=== PATIENT | female | born 1955 | race Caucasian/White ===

== ENCOUNTER 2019-11-09 20:31 | Observation (INO) | payer BC, OTHER ==
[2019-11-09 21:50] LABS: Absolute Lymphocytes (CBC) 3.7 K/uL (0.7-4.9); Basophils % 0.5 % (0-1.3); Hematocrit 40.8 % (36.0-45.0); Lymphocytes % 41.3 % (15.3-44.8); MPV 8.1 fL (7.6-11.3); RBC Red Blood Cell Count 4.79 M/uL (3.86-4.86)
[2019-11-09 22:09] LABS: Urine Blood 1+ (NEG); Urine Glucose NEGATIVE (NEG); Urine Protein NEGATIVE (NEG); Urine pH 5.5 (5.0-7.0)
[2019-11-09 22:09] LABS: ALT/SGPT 23 U/L (12-78); AST/SGOT 17 U/L (15-37); Albumin 3.7 g/dL (3.4-5.0); Alkaline Phosphatase 111 U/L (45-117); BUN Blood Urea Nitrogen 11 mg/dL (7-18); Bicarbonate 24 mmol/L (21-32); Bilirubin Direct < 0.1 mg/dL (0-0.2); Bilirubin Total 0.3 mg/dL (0.2-1.0); Glucose Level 115 mg/dL (74-106); Potassium 3.4 mmol/L (3.5-5.1); Protein, Total 6.8 g/dL (6.4-8.2); Sodium Level 139 mmol/L (136-145)
[2019-11-09 22:12] LABS: Barbiturates NEGATIVE (NEGATIVE); Benzodiazepines NEGATIVE (NEGATIVE); Cocaine NEGATIVE (NEGATIVE); METHAMPHETAM NEGATIVE (NEGATIVE); Methadone NEGATIVE (NEGATIVE); Opiates NEGATIVE (NEGATIVE); Phencyclidine NEGATIVE (NEGATIVE); THC Cannibis NEGATIVE (NEGATIVE)
[2019-11-09 22:24] LABS: Urine Bacteria NONE SEEN /HPF (<20); Urine Culture Reflex Order NOT NEEDED; Urine RBC <5 /HPF (NONE SEEN)
[2019-11-10] MEDS ORDERED: DIAZEPAM 2 MG TABLET ONE (02:02)
--- NOTE | 2019-11-10 02:06 | EDPHYS ---
Physician Documentation [facility] Name: Jazmín Isabel Age: 64 yrs Sex: Female : 1955 Arrival Date: 11/09/2019 Time: 20:35 Bed 6 Private MD: Tomy Zavala C ED Physician Martinez Varma HPI: 11/09 21:25 This 64 yrs old Female presents to ER via Ambulatory with complaints of rn Hallucinations. 21:25 The patient presents with hallucinations. Onset: The symptoms/episode began/occurred 2 rn month(s) ago. Possible causes: unknown. Current symptoms: In the emergency department the patient's symptoms are unchanged from the initial presentation. The patient has not experienced similar symptoms in the past. Reports for 2 months has been having hallucinations, no head injury/medication change/drug use. Reports seeing snakes, now seeing faces and arrows and objects in [place]. No previous psychiatric hx in patient or family. Eating well. . Historical: - Allergies: 21:02 welbutrin; fc - Home Meds: 21:03 methimazole 10 mg Oral tab 1 tab once daily [Active]; metoprolol tartrate 50 mg Oral fc tab 1 tab 2 times per day [Active]; - PMHx: 21:02 Arthritis; grave's disease; Hypertension; left ventricular enlargement; colon cancer; fc - PSHx: 21:02 Appendectomy; Hysterectomy; fc - Immunization history:: Adult Immunizations up to date. - Coronavirus screen:: The patient has NOT traveled to [place], [place], or [place] in the past 14 days. Proceed with normal triage process as indicated. The patient has NOT had contact with known/suspected case of Coronavirus? Proceed with normal triage procedures. - Social history:: Smoking status: Patient reports the use of cigarette tobacco products, smokes one pack cigarettes per day. - Family history:: not pertinent. - Ebola Screening: : No symptoms or risks identified at this time. - Hospitalizations: : No recent hospitalization is reported. ROS: 21:25 Constitutional: Negative for fever, chills, and weight loss, Eyes: Negative for injury, rn pain, redness, and discharge, Neck: Negative for injury, pain, and swelling, Cardiovascular: Negative for chest pain, palpitations, and edema, Respiratory: Negative for shortness of breath, cough, wheezing, and pleuritic chest pain, Abdomen/GI: Negative for abdominal pain, nausea, vomiting, diarrhea, and constipation, MS/Extremity: Negative for injury and deformity, Skin: Negative for injury, rash, and discoloration, Neuro: Negative for headache, weakness, numbness, tingling, and seizure. Exam: 21:25 Constitutional: This is a well developed, well nourished patient who is awake, alert, rn and in no acute distress. Tearful Head/Face: Normocephalic, atraumatic. Eyes: Pupils equal round and reactive to light, extra-ocular motions intact. Lids and lashes normal. Conjunctiva and sclera are non-icteric and not injected. Cornea within normal limits. Periorbital areas with no swelling, redness, or edema. Neck: Trachea midline, Supple, full range of motion without nuchal rigidity, or vertebral point tenderness. No Meningismus. + left supraclavicular soft mobile mass that is non-tender Cardiovascular: Regular rate and rhythm. No pulse deficits. Respiratory: No increased work of breathing, no retractions or nasal flaring. Abdomen/GI: soft, non-tender MS/ Extremity: Pulses equal, no cyanosis. Neurovascular intact. Full, normal range of motion. Equal circumference. Neuro: Awake and alert, GCS 15, oriented to person, place, time, and situation. Cranial nerves II-XII grossly intact. Motor strength 5/5 in all extremities. Sensory grossly intact. Cerebellar exam normal. Vital Signs: 21:04 BP 158 / 95; Pulse 90; Resp 19; Temp 97.8; Pulse Ox 99% ; Weight 88.45 kg; Height 5 ft. fc 5 in. (165.10 cm); Pain 0/10; 22:43 BP 115 / 47; Pulse 67; Resp 18; Pulse Ox 97% on R/A; ea 23:03 BP 129 / 65; Pulse 78; Resp 18; Pulse Ox 100% on R/A; ea 11/10 00:08 BP 129 / 71; Pulse 68; Resp 18; Temp 98; Pulse Ox 99% on R/A; ea 03:14 BP 129 / 62; Pulse 70; Resp 18; Pulse Ox 96% on R/A; ea 11/09 21:04 Body Mass Index 32.45 (88.45 kg, 165.10 cm) fc MDM: 11/09 21:00 Patient medically screened. rn 11/10 02:04 Differential Diagnosis: CVA, electrolyte abnormality, TIA, UTI, volume depletion. Data rn reviewed: vital signs, nurses notes, lab test result(s), radiologic studies, and as a result, I will admit patient. Counseling: I had a detailed discussion with the patient and/or guardian regarding: the historical points, exam findings, and any diagnostic results supporting the discharge/admit diagnosis, lab results, radiology results, the need for further work-up and treatment in the hospital. Response to treatment: There is no appreciated change of the patient's symptoms at this time, and as a result, I will admit patient. Admission orders: after a detailed discussion of the patient's condition and case, the admit orders are written by me. ED course: Neg w/u in ER, will admit for MRI and neuro consult to rule out medical cause of hallucinations.. 11/09 21:23 Order name: CBC with Diff; Complete Time: 00:42 rn 11/09 21:23 Order name: Basic Metabolic Panel; Complete Time: 00:42 rn 11/09 21:23 Order name: Urine Drug Screen; Complete Time: 00:42 rn 11/09 21:23 Order name: Urine Microscopic Only; Complete Time: 00:42 rn 11/09 21:23 Order name: TSH; Complete Time: 00:42 rn 11/09 21:23 Order name: T4 Free; Complete Time: 00:42 rn 11/09 21:23 Order name: IV Start; Complete Time: 21:36 rn 11/09 21:23 Order name: Urine Dipstick-Ancillary (obtain specimen); Complete Time: 22:00 rn 11/09 21:23 Order name: EKG; Complete Time: 21:24 rn 11/09 21:23 Order name: CT Head Brain wo Cont rn 11/09 21:23 Order name: LFT's; Complete Time: 00:42 rn 11/09 21:23 Order name: AMMONIA rn 11/09 22:01 Order name: Urine Dipstick--Ancillary (enter results); Complete Time: 00:42 em1 11/09 21:23 Order name: EKG - Nurse/Tech; Complete Time: 21:36 rn 11/09 21:52 Order name: Labs - recollect needed: recollect ammonia please use dark green tube; em1 Complete Time: 22:04 Administered Medications: 02:00 Drug: Valium 2 mg Route: PO; ea 03:06 Follow up: Response: No adverse reaction ea Disposition: 11/10/19 02:05 Hospitalization ordered by Tomy Zavala for Observation. Preliminary diagnosis is Hallucinations, unspecified. - Bed requested for Telemetry/MedSurg (observation). - Status is Observation. rv - Condition is Stable. - Problem is an ongoing problem. - Symptoms are unchanged. UTI on Admission? No Signatures: Dispatcher [employer] EDMS Rolanda Espinoza, RN RN fc Martinez Varma MD MD rn Martinez, Eric em1 Maile Flowers RN RN cg Elenita Leos RN Rajesh Ovalle ea, RN RN rv Corrections: (The following items were deleted from the chart) 02:56 02:05 Hospitalization Ordered by A Sally CRUZ for Observation. Preliminary diagnosis is cg Hallucinations, unspecified. Bed requested for Telemetry/MedSurg (observation). Status is Observation. Condition is Stable. Problem is an ongoing problem. Symptoms are unchanged. UTI on Admission? No. rn 03:40 02:56 11/10/2019 02:05 Hospitalization Ordered by A Sally CRUZ for Observation. rv Preliminary diagnosis is Hallucinations, unspecified. Bed requested for Telemetry/MedSurg (observation). Status is Observation. Condition is Stable. Problem is an ongoing problem. Symptoms are unchanged. UTI on Admission? No. cg
--- NOTE | 2019-11-10 02:06 | ER ---
Nurse's Notes [facility] Name: Jazmín Isabel Age: 64 yrs Sex: Female : 1955 Arrival Date: 11/09/2019 Time: 20:35 Bed 6 Private MD: Tomy Zavala C Diagnosis: Hallucinations, unspecified Presentation: 11/09 20:58 Presenting complaint: Patient states: started having hallucinations couple of months fc ago. Last September, she called her saying she is seeing people at the backyard. She has been seeing snakes, fog, etc. denies hurting herself or the others. she talks about taking her computer to the [employer]. Transition of care: patient was not received from another setting of care. Onset of symptoms was November 09, 2019 at 08:00. Risk Assessment: Do you want to hurt yourself or someone else? Patient reports no desire to harm self or others. Initial Sepsis Screen: Does the patient meet any 2 criteria? No. Patient's initial sepsis screen is negative. Does the patient have a suspected source of infection? No. Patient's initial sepsis screen is negative. Care prior to arrival: None. 20:58 Method Of Arrival: Ambulatory 20:58 Acuity: ALEX 3 fc Historical: - Allergies: 21:02 welbutrin; fc - Home Meds: 21:03 methimazole 10 mg Oral tab 1 tab once daily [Active]; metoprolol tartrate 50 mg Oral fc tab 1 tab 2 times per day [Active]; - PMHx: 21:02 Arthritis; grave's disease; Hypertension; left ventricular enlargement; colon cancer; fc - PSHx: 21:02 Appendectomy; Hysterectomy; fc - Immunization history:: Adult Immunizations up to date. - Coronavirus screen:: The patient has NOT traveled to [place], [place], or [place] in the past 14 days. Proceed with normal triage process as indicated. The patient has NOT had contact with known/suspected case of Coronavirus? Proceed with normal triage procedures. - Social history:: Smoking status: Patient reports the use of cigarette tobacco products, smokes one pack cigarettes per day. - Family history:: not pertinent. - Ebola Screening: : No symptoms or risks identified at this time. - Hospitalizations: : No recent hospitalization is reported. Screenin:00 Fall Risk IV access (20 points). ea 21:21 Abuse screen: Denies threats or abuse. Nutritional screening: No deficits noted. ea Tuberculosis screening: No symptoms or risk factors identified. Assessment: 21:34 General: Appears in no apparent distress. Behavior is cooperative. Pain: Denies pain. ea Neuro: Level of Consciousness is awake, alert, obeys commands, Oriented to person, place, time, Speech is normal. Cardiovascular: Patient's skin is warm and dry. Respiratory: Airway is patent Respiratory effort is even, unlabored, Respiratory pattern is regular, symmetrical. Derm: Skin is pink, warm \T\ dry. Musculoskeletal: Circulation, motion, and sensation intact. 22:03 Reassessment: Patient and/or family updated on plan of care and expected duration. Pain ea level reassessed. Patient is alert, oriented x 3, equal unlabored respirations, skin warm/dry/pink. Pt taken to CT. 22:16 Reassessment: Patient and/or family updated on plan of care and expected duration. Pain ea level reassessed. Patient is alert, oriented x 3, equal unlabored respirations, skin warm/dry/pink. Returned form CT. 23:02 Reassessment: Patient and/or family updated on plan of care and expected duration. Pain ea level reassessed. Patient is alert, oriented x 3, equal unlabored respirations, skin warm/dry/pink. Awaiting on CT results, family remains at bedside Patient denies pain at this time. 11/10 00:09 Reassessment: Patient and/or family updated on plan of care and expected duration. Pain ea level reassessed. Patient is alert, oriented x 3, equal unlabored respirations, skin warm/dry/pink. 01:52 Reassessment: Patient and/or family updated on plan of care and expected duration. Pain ea level reassessed. Patient is alert, oriented x 3, equal unlabored respirations, skin warm/dry/pink. Provider at bedside updating pt on plan of care. 02:11 Reassessment: Patient and/or family updated on plan of care and expected duration. Pain ea level reassessed. Patient is alert, oriented x 3, equal unlabored respirations, skin warm/dry/pink. Irene pt's daughter reported she is going to leave to take a nap and return at 7 AM, call [phone] if anything changes. 03:13 Reassessment: Patient and/or family updated on plan of care and expected duration. Pain ea level reassessed. Pt resting with eyes closed, respirations even and unlabored, chest expansions even and symmetrical. 03:34 Reassessment: Report called to Anyi MEZA. ea Vital Signs: 11/09 21:04 BP 158 / 95; Pulse 90; Resp 19; Temp 97.8; Pulse Ox 99% ; Weight 88.45 kg; Height 5 ft. 5 in. (165.10 cm); Pain 0/10; 22:43 BP 115 / 47; Pulse 67; Resp 18; Pulse Ox 97% on R/A; ea 23:03 BP 129 / 65; Pulse 78; Resp 18; Pulse Ox 100% on R/A; ea 11/10 00:08 BP 129 / 71; Pulse 68; Resp 18; Temp 98; Pulse Ox 99% on R/A; ea 03:14 BP 129 / 62; Pulse 70; Resp 18; Pulse Ox 96% on R/A; ea 11/09 21:04 Body Mass Index 32.45 (88.45 kg, 165.10 cm) ED Course: 11/09 20:35 Patient arrived in ED. ag5 20:36 Tomy Zavala MD is Private Physician. ag5 20:36 Raudel Zavala MD is Private Physician. ag5 20:36 Raudel Zavala MD is Private Physician. ag5 21:00 Martinez Varma MD is Attending Physician. rn 21:01 Triage completed. 21:20 Elenita Leos RN is Primary Nurse. ea 21:21 Arm band placed on right wrist. Patient placed in an exam room, on a stretcher, on ea pulse oximetry. 21:21 Patient has correct armband on for positive identification. Bed in low position. Call ea light in reach. Side rails up X2. Adult w/ patient. 21:35 Inserted saline lock: 20 gauge in right antecubital area, using aseptic technique. ea Blood collected. Per Aisha laboratory mechanical technician. 22:14 CT Head Brain wo Cont In Process Unspecified. EDMI 11/10 02:05 Tomy Zavala MD is Hospitalizing Provider. rn 02:06 No provider procedures requiring assistance completed. Patient admitted, IV remains in ea place. Administered Medications: 02:00 Drug: Valium 2 mg Route: PO; ea 03:06 Follow up: Response: No adverse reaction corry Outcome: 02:05 Decision to Hospitalize by Provider. rn 02:06 Instructed on the need for admit. corry 03:34 Admitted to Med/surg accompanied by tech, room 210, with chart, Report called to corry De Santiago RN 03:34 Condition: stable 03:40 Patient left the ED. rv Signatures: Dispatcher [employer] EDMS Rolanda Espinoza RN Martinez Sloan MD MD rn Antunez, Elena, RN RN ea Vicente, Ronaldo RN RN Gamaliel Branham ag5
[2019-11-10] MEDS ORDERED: ONDANSETRON 4 MG/2 ML VIAL IV PRN (04:06)
[2019-11-10 04:13] VITALS: BMI 32.0
[2019-11-10 06:31] VITALS: O2SAT 98
--- NOTE | 2019-11-10 06:56 | EKG ---
Test Date: 2019-11-09 Test Time: 21:34:34 Vice President Research: GERTRUDIS MEASUREMENT RESULTS: Intervals: Rate: 78 WA: 154 QRSD: 72 QT: 404 QTc: 460 [place]: P: 52 WA: 154 QRS: 19 T: 51 INTERPRETIVE STATEMENTS: Normal sinus rhythm T wave abnormality, consider anterior ischemia Abnormal ECG Compared to ECG 12/25/2016 11:35:44 T-wave abnormality now present Possible ischemia now present Left ventricular hypertrophy no longer present ST (T wave) deviation no longer present Electronically Signed On 11-10-19 06:55:30 PASSENGER VESSEL CHEF by Malik Russell
[2019-11-10] MEDS ORDERED: PNEUMOCOCCAL VACCINE 0.5 ML IMVAC ONE (08:00)
[2019-11-10] MEDS ORDERED: INFLUENZA VACCINE (for 3y+) 0.5 ML DOSE IMVAC ONE (08:00)
--- NOTE | 2019-11-10 11:52 | RAD REPORT ---
EXAM DESCRIPTION: MRI - Brain W/Wo Cont - 11/10/2019 9:45 am CLINICAL HISTORY: Visual hallucinations COMPARISON: November 10, [address] TECHNIQUE: Axial, sagittal, and coronal magnetic images of the brain were obtained. 20 cc MultiHance administered intravenously FINDINGS: Mild signal within periventricular, deep and subcortical white matter probably ischemic ch anges secondary to small vessel disease The ventricles are normal in caliber. Diffusion-weighted/ ADC mapping sequences do not demonstrate evidence of an acute infarction. No abnormal enhancement within the brain is seen. An extra-axial fluid collection is not noted. Fluid within the sinuses/mastoids is not seen IMPRESSION: No acute abnormality displayed
--- NOTE | 2019-11-10 11:53 | RAD REPORT ---
EXAM DESCRIPTION: MRI - MRA Neck W/Wo Cont - 11/10/2019 9:45 am CLINICAL HISTORY: Visual hallucinations COMPARISON: None. TECHNIQUE: Magnetic resonance angiogram of the neck was performed. 19 cc MultiHance was administered intravenously. 3D MIPS reconstruction performed FINDINGS: Mild plaque is present within common carotid, internal carotid and external carotid arteri es. An aneurysm is not seen. The vertebral arteries are codominant without visualization of an abnormality. IMPRESSION: Mild plaque within the carotid arteries. A significant abnormality is not displayed. NASCET criteria used. Mild 0-49% stenosis Moderate 50-69% stenosis Severe 70-99% stenosis
--- NOTE | 2019-11-10 11:56 | RAD REPORT ---
EXAM DESCRIPTION: MRI - MRA Head Wo Cont - 11/10/2019 9:44 am CLINICAL HISTORY: Visual disturbance COMPARISON: None. TECHNIQUE: Magnetic resonance angiogram was performed. 3D MIPS reconstruction performed FINDINGS: The anterior cerebral, middle cerebral, posterior cerebral, distal internal carotid and ba silar arteries do not demonstrate a significant stenosis. Dolichoectasia of the vertebrobasilar artery is present An aneurysm is not displayed. IMPRESSION: Unremarkable MRA brain.
[2019-11-10 12:13] VITALS: BP 126/55; TEMP 97.4
--- NOTE | 2019-11-10 12:27 | RAD REPORT ---
EXAM DESCRIPTION: CT - Head Brain Wo Cont - 11/10/2019 9:52 am CLINICAL HISTORY: Hallucinations COMPARISON: None available TECHNIQUE: Axial CT of the head obtained from the skull apex to the skull base without contrast. FINDINGS: No acute intracranial hemorrhage identified. No mass, mass effect, shift of the midline, a bnormal extra-axial fluid collection or CT evidence of acute ischemic change identified. The ventricu lar system and sulcal spaces are not enlarged. Scattered areas of hypodensity throughout the suprat entorial white matter are nonspecific and may be related to chronic small vessel ischemic change. The visualized paranasal sinuses and the mastoids are clear. No skull fracture identified. Visualized orbits and globes are unremarkable. Atherosclerotic nessa cification of the intracranial internal carotid arteries. DLP: mGy-cm IMPRESSION: 1. No acute intracranial abnormality by CT criteria. This exam was performed according to our departmental dose-optimization program, which includes autom ated exposure control, adjustment of the mA and/or kV according to patient size and/or use of iterati ve reconstruction technique. Electronically signed by: Campbell Ragland 11/09/2019 10:32 PM NURSE RESEARCH Due to temporary technical issues with the PACS/Fluency reporting system, reports are being signed by the in house radiologist as a courtesy to ensure prompt reporting. The interpreting radiologist is f ully responsible for the content of the report.
--- NOTE | 2019-11-10 21:50 | CON ---
Reason For Consultation: Consultation called because of hallucinations. History Of Present Illness: Ms. Isabel is a 64-year-old right-handed patient with no psyc hiatric past history and no use of illegal drugs or new medications, who developed hallucinations deandre roximately 2 months ago. She said the hallucinations would consist of shapes like eyes with things p ulling down the eyes or people will appear to have a knife and having a stabbing type action towards her. She says these activities would occur with the eyes open and closed and occurred in her home an d in her car and other places without any precipitating factors. She denies weakness in her face, ar m, or leg along with this. No loss of sensation in her face, arm, or leg as well. She has no loss o f consciousness and no disorientation or confusion. The hallucinations are off and on, but even in [facility] hospital room, she was looking around on the [place] and noting that some events were still occurrin g. At [facility], her head CT scan along with her brain MRI and brain MRA were unremarkable . Her neck MRA was unremarkable as well. Her electrocardiogram showed sinus rhythm with T waves abn ormalities, which is suggestive of anterior ischemia. Her complete blood count with differential was normal. Chemistries show slightly low potassium, mildly elevated glucose of 115, calcium slightly l ow at 8.3. Thyroid-stimulating hormone level elevated to 5.04. Her urinalysis showed 1+ blood, and urine toxicology screen was negative. Since hospitalization, the hallucinations have not changed sig nificantly. Past Medical History: Graves disease, arthritis, hypertension, left ventricular and heart enlargemen t, colon cancer. Allergies: TO WELLBUTRIN. Medications At Home: Metronidazole 10 mg daily, metoprolol 50 mg twice daily. Surgical History: Appendectomy, hysterectomy. Family History: Noncontributory. Social History: She denies alcohol, tobacco, or IV drug use and has not been exposed to any known barb[place] spects of viruses such as is[place] virus and has had no recent fevers, chills, nausea, or vomiting. e does report some history of headaches, which may accompany to visual disturbances, although these h eadaches are described as mild and not having accompanied nausea, vomiting, light and sound sensitivi ty or scalp sensitivity. Review of Systems: As indicated. No recent fevers, chills, nausea, vomiting, myalgias, arthralgias, rash, psychiatric c omplaints, or gastrointestinal issues. Physical Examination: Vital Signs: Blood pressure 126/55, pulse 53, respiratory rate 14, temperature 97.4, oxygen saturati on 98% on room air. Weight 192 pounds, height 5 feet 5 inches, BMI of 32. General: Ms. Isabel is resting in bed. She is actually sitting in bed, in no acute distress. She is normocephalic, atraumatic. Sclerae are anicteric. Oropharynx is moist and pink. Neck: Supple. Chest: Clear. Heart: Regular. Extremities: No edema, clubbing, cyanosis. Neurological: She has full visual piedra to confrontation. Pupils are equally round and reactive to light and accommodation. Extraocular movements are intact. Patient's sensation intact to light vladimir ch, pinprick, temperature over distributions V1, V2, and V3 bilaterally and the face is symmetric wit h equal excursions on smiling. Hearing intact to finger rub bilaterally. Tongue and palate are in t he midline. On motor examination, she has normal bulk and tone in the upper and lower extremities bi laterally and strength is 5/5 proximally and distally. Sensory exam intact in the upper and lower ex tremities bilaterally. Coordination intact in upper and lower extremities. Gait good stance, right arm swing. Assessment: Ms. Isabel is a 64-year-old patient with hallucinations of unclear etiology. Her diffe rential diagnosis should include ocular migraines and simple partial seizures and less likely transie nt ischemic attacks. Further psychiatric diagnoses may be considered. Her neurological examination and brain MRI are normal. Plan: The patient should have a full ophthalmological examination. She did report radial keratotomy surgery many years ago and has had some visual acuity issues since the surgery. 1.Ophthalmological evaluation. 2.Follow up in Dr. Monet's clinic for consideration of prophylactic medications for ocular migrai ne such as topiramate or Depakote. 3.Patient should maintain a diary of events and record intensity of any headache. 4.She may benefit from magnesium, perhaps the Slow-Mag 143 mg twice daily. 5.The patient did report some insomnia and because of the event and was told that melatonin starting at 3 mg up to 9 mg at night may be helpful. 6.Follow up in Dr. Monet's clinic 1 month later. LB/MODL Voice ID: [id number] Report ID: [id number]
== END 2019-11-10 13:58 | disposition home or self-care (01) ==
LOC: ER 20:31 → ERHOLD 11-10 03:16 → 4TH 11-10 03:34
PROVIDERS: ADMIT Internal Medicine; ATTEND Internal Medicine
DX: R44.3 Hallucinations, unspecified (principal); E05.00 Thyrotoxicosis with diffuse goiter without thyrotoxic crisis or storm; I10 Essential (primary) hypertension; Z85.038 Personal history of other malignant neoplasm of large intestine
CPT/HCPCS: 93005; 85025; 80048; 36415; 82140; 80076; 80307 ×8; 84443; 84439; 70450; 70553; 70544; 70549; 99285; A9577; G0378 ×2; 81003; 81015

== ENCOUNTER 2023-03-05 08:05 | Day surgery (SDC) | payer BC, OTHER ==
--- NOTE | 2023-03-02 16:13 | RAD REPORT ---
EXAM DESCRIPTION: RAD - Chest Pa And Lat (2 Views) - 03/02/2023 4:01 pm CLINICAL HISTORY: pre op pending mass removal right hand Chest pain. TECHNIQUE: PA and lateral views of the chest were obtained. FINDINGS: The lungs are hyperexpanded compatible with COPD. The heart is upper limit of normal in si ze. No fracture or aggressive bony process. IMPRESSION: COPD without acute process identified. The USPSTF recommends annual screening for lung cancer with low-dose CT (LDCT) in adults aged 50 to 80 years who have a 20 pack-year smoking history and currently smoke or have quit within the past 15 years.
[2023-03-02 16:14] LABS: Hematocrit 42.5 % (36.0-45.0); Lymphocytes % 27.9 % (15.3-44.8); MCV 88.5 fL (80-100); MPV 7.8 fL (7.6-11.3)
[2023-03-02 16:26] LABS: Potassium 4.2 mEq/L (3.5-5.1)
[2023-03-05] MEDS ORDERED: BUPIVACAINE 0.5% PF 10 ML VIAL ONE (08:20)
[2023-03-05] MEDS ORDERED: CEFAZOLIN SODIUM 1 GM/VIAL ONE (08:29)
[2023-03-05] MEDS ORDERED: Ringers Lactate 1,000 ML IV ONE (08:29)
[2023-03-05] MEDS ORDERED: propofoL 200 MG/20 ML VIAL IV ONE (08:54)
[2023-03-05] MEDS ORDERED: FENTANYL CITR 100 MCG/2 ML ONE (08:55)
[2023-03-05] MEDS ORDERED: MIDAZOLAM HCL 2 MG/2 ML INJ ONE (08:55)
[2023-03-05] MEDS ORDERED: ONDANSETRON 4 MG/2 ML VIAL ONE ×2 (08:56→09:20)
[2023-03-05] MEDS ORDERED: LIDOCAINE 2% MPF 5 ML VIAL ONE (08:56)
[2023-03-05] MEDS ORDERED: dexAMETHasone 4 MG/ML VIAL ONE (09:20)
[2023-03-05] MEDS ORDERED: EPHEDRINE SULF 50 MG/ML VIAL ONE (09:37)
--- NOTE | 2023-03-05 09:39 | P.BOP ---
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
[2023-03-05 10:37] VITALS: TEMP 97.4
[2023-03-05 11:31] VITALS: BP 109/41; O2SAT 98
--- NOTE | 2023-03-05 11:47 | OP ---
Date of Procedure: 03/05/2023 Surgeon: Juan Drummond MD Preoperative Diagnosis: Right dorsal hand ulcerated necrotic mass. Postoperative Diagnosis: Keratoacanthoma with squamous cell carcinoma features. Procedure: Wide excision with frozen section of right hand squamous cell carcinoma about 3 x 2 cm ar ea. Estimated Blood Loss: Less than 5 cc. Specimen And Findings: Margin free of tumor and keratoacanthoma with squamous cell carcinoma feature s by Dr. Phipps. Final result will be done after permanent section done. Anesthesia: General plus local. Complications: None. Indication: This is the case of a female, who comes to us with an ulcerated mass in the right dorsal hand getting bigger. She noticed in the last week the skin on top is becoming black too. There is some ulceration present. There is no history of recent trauma. The benefits, alternatives, and risk s of wide excision with frozen section fully explained, which include, but not limited to infection, bleeding, damage to adjacent structures, anesthesia complication, recurrence, NM, and even . Sh e also understands this may not relieve any symptoms. She might need more than one surgical interven tion. She has several veins passing right through the mass itself that she understand may need to be ligated. The area of concern was marked by me and the patient in the holding room. Procedure In Detail: The patient was brought to the operating room, placed in supine position. Anes thesia was done without complication. The right hand was prepped and draped in the usual sterile fas hion. Local anesthesia was applied. A wedge incision was made after a time-out. Incision was astrid ed down to subcutaneous tissue. We removed that mass and subcutaneous tissue. There were 2 veins ri ght underneath that we were able to preserve. Does not seem to be grossly attached to the tumor. Th e mass was excised. Then, after that, I sent that to frozen section. Apparently, there was a kerato acanthoma with squamous cell carcinoma features and margins free of tumor per Dr. Phipps. The area w as irrigated, hemostasis was obtained, and we proceeded to close this with a mattress suture of 3-0 n ylon interrupted multiple times. The patient tolerated the procedure well. Hemostasis was obtained before closure. The patient was sent to recovery in stable condition. LINDA/KEM Voice ID: [id number] Report ID: [id number]
--- NOTE | 2023-03-05 11:47 | DS ---
Diagnosis: Right dorsal hand ulcerated squamous cell carcinoma. Procedure: Wide excision with frozen section of right hand squamous cell carcinoma. Disposition: Home. Activity: As tolerated. No heavy lifting. Plan: Follow up in my office in 1 week. Call for appointment at [phone]. Keep area intact until sh e see us again. LINDA/KEM Voice ID: [id number] Report ID: [id number]
--- NOTE | 2023-03-05 15:27 | EKG ---
Test Date: 2023-03-02 Test Time: 15:30:43 Surveying Technician: SANGITA MEASUREMENT RESULTS: Intervals: Rate: 51 OR: 162 QRSD: 72 QT: 440 QTc: 405 [place]: P: 70 OR: 162 QRS: 53 T: 78 INTERPRETIVE STATEMENTS: Sinus bradycardia Otherwise normal ECG No previous ECG available for comparison Electronically Signed On 03-05-23 15:22:20 CDT by Alejandro Pettit
== END 2023-03-05 11:11 | disposition home or self-care (01) ==
LOC: OR 08:05
PROVIDERS: ATTEND Surgery
PROC: 0JBJ0ZZ Excision of Right Hand Subcutaneous Tissue and Fascia, Open Approach (ICD-10-PCS; principal; 2023-03-05 09:15)
DX: C44.622 Squamous cell carcinoma of skin of right upper limb, including shoulder (principal)
CPT/HCPCS: 93005; 85025; 80048; 36415; 88331; 88332; 88305; 71046; 11623; J2704; J1100; J2001; J2250; J3010; J2405 ×2; J7120; J0690

== ENCOUNTER 2023-08-08 09:03 | Day surgery (SDC) | payer BC, OTHER ==
[2023-08-08 09:16] LABS: Absolute Lymphocytes (CBC) 2.2 K/uL (0.7-4.9); Lymphocytes % 29.3 % (15.3-44.8); MCV 88.3 fL (80-100); MPV 7.2 fL (7.6-11.3); Platelets 220 thou/uL (152-406); RBC Red Blood Cell Count 4.53 M/uL (3.86-4.86)
[2023-08-08 09:45] LABS: Potassium 4.9 mEq/L (3.5-5.1)
[2023-08-08] MEDS ORDERED: Ringers Lactate 1,000 ML IV ONE (09:55)
[2023-08-08] MEDS: CEFAZOLIN SODIUM 1 GM/VIAL ONE ×2 (12:03→12:16)
[2023-08-08] MEDS ORDERED: FENTANYL CITR 100 MCG/2 ML ONE (12:08)
[2023-08-08] MEDS ORDERED: MIDAZOLAM HCL 2 MG/2 ML INJ ONE (12:08)
[2023-08-08] MEDS ORDERED: propofoL 200 MG/20 ML VIAL IV ONE (12:08)
[2023-08-08] MEDS ORDERED: LIDOCAINE 2% MPF 5 ML VIAL ONE (12:09)
[2023-08-08] MEDS ORDERED: ONDANSETRON 4 MG/2 ML VIAL ONE (12:10)
[2023-08-08] MEDS ORDERED: dexAMETHasone 4 MG/ML VIAL ONE (12:28)
[2023-08-08] MEDS ORDERED: KETOROLAC 30 MG/ML INJ ONE (12:28)
--- NOTE | 2023-08-08 12:44 | P.BOP ---
Preoperative diagnosis: Right dorsal hand ulcerated skin mass 2.5 x 2.5 cm Primary procedure: Wide excision of Right dorsal hand ulcerated skin mass Estimated blood loss: <10cc Specimen: mass Findings: Right dorsal hand ulcerated skin cystic mass Anesthesia: General Complications: None Transferred to: Recovery Room Condition: Good
[2023-08-08] MEDS ORDERED: GLYCOPYRROLATE 0.2 MG/ML SYR ONE (12:46)
[2023-08-08] MEDS ORDERED: CODEINE 30MG/APAP 300MG TAB PO ONE (13:29)
[2023-08-08] MEDS ORDERED: CODEINE 30MG/APAP 300MG TAB ONE (14:08)
--- NOTE | 2023-08-08 16:00 | OP ---
Date of Procedure: 08/08/2023 Surgeon: Juan Drummond MD Reason For Service: Right dorsal hand skin lesion ulcerated mass 2.5 x 2.5 cm. Postoperative Diagnosis: Right dorsal hand skin lesion ulcerated mass 2.5 x 2.5 cm. Procedure: Wide excision of right dorsal hand ulcerated skin mass. Estimated Blood Loss: Less than 10 cc. Specimen: Cystic mass. Findings: Per Dr. Phipps, radiologist: Cystic mass, no evidence of cancer. Further investigation w ill be done in the next few days. Anesthesia: General plus local. Complications: None. Indication: This is a case of a 68-year-old patient with history of skin cancer, came with this new area on the dorsum of the hand ulcerated she is concerned because in the past she has a ca ncer in the same hand that is trying to look this way, so she does not want to wait. She wants to ex cise that. The benefits, alternatives, and risks of wide excision with frozen section fully explaine d, which include, but not limited to, infection, bleeding, damage to adjacent structures, anesthesia complication, recurrence, DC, and even . She also understands this may not relieve any symptoms . She might need more than one surgical intervention. She understood, signed a consent. Description Of Procedure: The area of concern was marked by me in the holding room. Patient brought to the operating room, placed in supine position. Anesthesia was done without complication. Right hand was prepped and draped in a sterile fashion. Time-out was called. A wedge incision was made in the skin. This goes all the way down to subcutaneous tissue. The patient does not have much fat in that area, so the veins had to be carefully dissected free from the specimen. Two veins specificall y in that area. The mass was removed, sent to the pathologist with [facility] and they claimed that it is a cystic lesion. They cannot see any cancer at this moment. So, the area was irrigated. We procee ded to close this with the help of 3-0 chromic and 3-0 nylon. Sponge counts and instrument counts we re correct. Hemostasis was obtained before closure. Patient sent to Recovery in stable condition. LINDA/DARIENL Voice ID: [id number] Report ID: [id number]
--- NOTE | 2023-08-08 16:03 | DS ---
Date of Discharge: 08/08/2023 Condition: Stable. Diagnosis: Right hand dorsal hand ulcerated skin mass. Procedure: Wide excision of right dorsal hand ulcerated cystic mass. Disposition: Home. Activity: As tolerated. No heavy lifting. Plan: Follow up in my office in 1 week. Call for appointment [phone]. Keep area dry for 48 hours, then may shower. Then after that may clean the area with soap and water but only running water. Th en may apply triple antibiotics daily. LINDA/KEM Voice ID: [id number] Report ID: [id number]
[2023-08-09 15:45] VITALS: BP 127/80; TEMP 97.8; O2SAT 100
== END 2023-08-08 14:15 | disposition home or self-care (01) ==
LOC: OR 09:03
PROVIDERS: ATTEND Surgery
PROC: 0JBJ0ZZ Excision of Right Hand Subcutaneous Tissue and Fascia, Open Approach (ICD-10-PCS; principal; 2023-08-08 12:30)
DX: L72.0 Epidermal cyst (principal); L57.0 Actinic keratosis
CPT/HCPCS: 85025; 80048; 36415; 88331; 88332; 88305; 11423; J2704; J1100; J2001; J2250; J3010; J2405; J7120; J0690; 88304

== ENCOUNTER 2024-11-01 10:35 | Emergency (ER) | payer BC, OTHER ==
[2024-11-01] MEDS ORDERED: LORAZEPAM 1 MG TABLET ONE (11:51)
--- NOTE | 2024-11-01 11:55 | EDPHYS ---
Physician Documentation [facility] Name: Jazmín Arriaga Age: 69 yrs Sex: Female : 1955 Arrival Date: 11/01/2024 Time: 10:35 Bed 5 Private MD: MAINE Physician John Wade HPI: 11/01 11:48 This 69 yrs old Female presents to ER via Ambulatory with complaints of beronica Anxiety, Medication Refill. 11:48 The patient presents to the emergency department requesting refill(s) for: Xanax. The [facility] patient chronically suffers from anxiety. The patient has experienced similar episodes in the past, multiple times. Historical: - Allergies: 10:47 welbutrin; ap3 - Home Meds: 10:47 metoprolol tartrate 50 mg Oral tab 1 tab once [Active]; ap3 - PMHx: 10:47 Arthritis; colon cancer; grave's disease; Hypertension; left ventricular enlargement; ap3 Anxiety; - Immunization history:: Client reports having NOT received the Covid vaccine. Flu vaccine is not up to date. - Infectious Disease History:: Denies. - Social history:: Smoking status: Patient reports the use of cigarette tobacco products, smokes one pack cigarettes per day. - Family history:: not pertinent. ROS: 11:48 Constitutional: Negative for fever, chills, and weight loss, Eyes: Negative for injury, beronica pain, redness, and discharge, ENT: Negative for injury, pain, and discharge, Neck: Negative for injury, pain, and swelling, Cardiovascular: Negative for chest pain, palpitations, and edema, Respiratory: Negative for shortness of breath, cough, wheezing, and pleuritic chest pain, Abdomen/GI: Negative for abdominal pain, nausea, vomiting, diarrhea, and constipation, Back: Negative for injury and pain, : Negative for injury, bleeding, discharge, and swelling, MS/Extremity: Negative for injury and deformity, Skin: Negative for injury, rash, and discoloration, Neuro: Negative for headache, weakness, numbness, tingling, and seizure, Allergy/Immunology: Negative for hives, rash, and allergies, Endocrine: Negative for neck swelling, polydipsia, polyuria, polyphagia, and marked weight changes, Hematologic/Lymphatic: Negative for swollen nodes, abnormal bleeding, and unusual bruising, 11:48 Psych: Positive for anxiety, Exam: 11:48 Constitutional: This is a well developed, well nourished patient who is awake, alert, beronica and in no acute distress. Head/Face: Normocephalic, atraumatic. Eyes: Pupils equal round and reactive to light, extra-ocular motions intact. Lids and lashes normal. Conjunctiva and sclera are non-icteric and not injected. Cornea within normal limits. Periorbital areas with no swelling, redness, or edema. ENT: Nares patent. No nasal discharge, no septal abnormalities noted. Tympanic membranes are normal and external auditory canals are clear. Oropharynx with no redness, swelling, or masses, exudates, or evidence of obstruction, uvula midline. Mucous membranes moist. Neck: Trachea midline, no thyromegaly or masses palpated, and no cervical lymphadenopathy. Supple, full range of motion without nuchal rigidity, or vertebral point tenderness. No Meningismus. Chest/axilla: Normal chest wall appearance and motion. Nontender with no deformity. No lesions are appreciated. Cardiovascular: Regular rate and rhythm with a normal S1 and S2. No gallops, murmurs, or rubs. Normal PMI, no JVD. No pulse deficits. Respiratory: Lungs have equal breath sounds bilaterally, clear to auscultation and percussion. No rales, rhonchi or wheezes noted. No increased work of breathing, no retractions or nasal flaring. Abdomen/GI: Soft, non-tender, with normal bowel sounds. No distension or tympany. No guarding or rebound. No evidence of tenderness throughout. Back: No spinal tenderness. No costovertebral tenderness. Full range of motion. Skin: Warm, dry with normal turgor. Normal color with no rashes, no lesions, and no evidence of cellulitis. MS/ Extremity: Pulses equal, no cyanosis. Neurovascular intact. Full, normal range of motion., bilateral aka Neuro: Awake and alert, GCS 15, oriented to person, place, time, and situation. Cranial nerves II-XII grossly intact. Motor strength 5/5 in all extremities. Sensory grossly intact. Cerebellar exam normal. Normal gait. 11:48 Neuro: Orientation: is normal, appropriate for stated age, no acute changes, Mentation: is normal, appropriate for stated age, no acute changes, Memory: is normal, appropriate for stated age, no acute changes, Cranial nerves: grossly normal, is grossly normal based on the patient's age, no acute changes, Cerebellar function: is grossly normal, is grossly normal based on the patient's age, no acute changes, Motor: moves all fours, strength is normal, strength is 5/5 in all extremities, Gait: is steady, seizure activity, is not displayed by the patient, Vital Signs: 10:45 BP 161 / 100; Pulse 78; Resp 17; Temp 97.9; Pulse Ox 99% on R/A; ap3 10:53 Weight 66.5 kg; ap3 11:59 BP 155 / 99; Pulse 79; Resp 18; Pulse Ox 99% on R/A; ld1 MDM: 10:55 Medical Screening Exam initiated beronica 11:51 Data reviewed: vital signs, nurses notes. Consideration of Admission/Observation beronica Escalation of care including admission/observation considered. I considered the following discharge prescriptions or medication management in the emergency department Medications were administered in the Emergency Department. See MAR. Test considered but Not performed: Labs: no labs. Historians other than the Patient: Spouse/Significant Other: well informed. Care significantly affected by the following chronic conditions: Hypertension, Cancer, oa, left vent enlarge, graves. 11/01 11:53 Order name: PO challenge: juice; Complete Time: 11:56 beronica Administered Medications: 11:52 Drug: LORazepam PO 2 mg PO once Route: PO; ld1 11:56 Follow up: Response: No adverse reaction ld1 Disposition Summary: 11/01/24 11:54 Discharge Ordered Notes: Location: Home beronica Problem: new beronica Symptoms: have improved beronica Condition: Stable beronica Diagnosis - Anxiety disorder, unspecified beronica - Other specified anxiety disorders beronica Followup: beronica - With: Private Physician - When: 2 - 3 days - Reason: Recheck today's complaints, Continuance of care, Re-evaluation by your physician Followup: beronica - With: Javier Mei MD - When: 2 - 3 days - Reason: Recheck today's complaints, Re-evaluation by your physician Discharge Instructions: - Discharge Summary Sheet beronica - Panic Attack beronica - Panic Attack, Aecy-fl-Ettl ebronica - Generalized Anxiety Disorder, Adult beronica - Supporting Someone With Anxiety beronica - Managing Anxiety, Adult beronica Forms: - Medication Reconciliation Form beronica - Antibiotic Education beronica - Prescription Opioid Use beronica - Patient Portal Instructions [facility] - Leadership Thank You Letter [facility] Prescriptions: - Hydroxyzine HCl 25 mg Oral Tablet - take 1 tablet ORAL route every 6 hours As needed; 30 tablet; Refills: 0, [facility] Product Selection Permitted - Xanax 0.5 mg Oral tablet - take 1 tablet ORAL route every 8 hours As needed prn; 16 tablet; Refills: 0, [facility] Product Selection Permitted Signatures: John Wade MD MD cha Prokisch, Amanda RN RN ap3 Richelle Avila RN RN ld1
--- NOTE | 2024-11-01 11:55 | ER ---
Nurse's Notes [facility] Name: Jazmín Arriaga Age: 69 yrs Sex: Female : 1955 Arrival Date: 11/01/2024 Time: 10:35 Bed 5 Private MD: Diagnosis: Anxiety disorder, unspecified;Other specified anxiety disorders Presentation: 11/01 10:45 Chief complaint: Patient states: she has been having "real bad anxiety all week, I'm ap3 pacing the floors, not eating and I've had to take extra medicine." Patient states she takes 1.5mg xanex three times a day, but she states she has had to take more recently due to an increase in anxiety. patient denies any HI or SI at this time. Coronavirus screen: At this time, the client does not indicate any symptoms associated with coronavirus-19. Ebola Screen: No symptoms or risks identified at this time. Initial Sepsis Screen: Does the patient meet any 2 criteria? No. Patient's initial sepsis screen is negative. Does the patient have a suspected source of infection? No. Patient's initial sepsis screen is negative. Risk Assessment: Do you want to hurt yourself or someone else? Patient reports no desire to harm self or others. Onset of symptoms is unknown. 10:45 Method Of Arrival: Ambulatory ap3 10:45 Acuity: ALEX 3 ap3 Triage Assessment: 10:49 General: Appears distressed, Behavior is anxious. Pain: Denies pain. Neuro: Level of ap3 Consciousness is awake, alert, obeys commands, Oriented to person, place, time, situation, Appropriate for age. Cardiovascular: Patient's skin is warm and dry. Respiratory: Airway is patent Respiratory effort is even, unlabored, Respiratory pattern is regular, symmetrical. Historical: - Allergies: 10:47 welbutrin; ap3 - Home Meds: 10:47 metoprolol tartrate 50 mg Oral tab 1 tab once [Active]; ap3 - PMHx: 10:47 Arthritis; colon cancer; grave's disease; Hypertension; left ventricular enlargement; ap3 Anxiety; - Immunization history:: Client reports having NOT received the Covid vaccine. Flu vaccine is not up to date. - Infectious Disease History:: Denies. - Social history:: Smoking status: Patient reports the use of cigarette tobacco products, smokes one pack cigarettes per day. - Family history:: not pertinent. Screenin:49 Abuse screen: Denies threats or abuse. Tuberculosis screening: No symptoms or risk ap3 factors identified. 11:59 [facility] ED Fall Risk Assessment (Adult) History of falling in the last 3 months, ld1 including since admission No falls in past 3 months (0 pts) Confusion or Disorientation No (0 pts) Intoxicated or Sedated No (0 pts) Impaired Gait No (0 pts) Mobility Assist Device Used No (0 pt) Altered Elimination No (0 pt) Score/Fall Risk Level 0 - 2 = Low Risk Oriented to surroundings, Maintained a safe environment, Educated pt \\T\\ family on fall prevention, incl call for assistance when getting out of bed, Assessed \\T\\ reinforced patient's understanding of fall precautions, Provided non-skid footwear, Hourly rounding (assess needs \\T\\ fall precautionary measures) done, Used ambulatory aids as needed (educated on \\T\\ assisted with), Used gait belt as appropriate. Nutritional screening: No deficits noted. Assessment: 11:59 General: Appears in no apparent distress. Behavior is anxious. Pain: Denies pain. ld1 Neuro: Level of Consciousness is awake, alert, obeys commands, Oriented to person, place, time, situation. Cardiovascular: Capillary refill < 3 seconds Patient's skin is warm and dry. Respiratory: Airway is patent Respiratory effort is even, unlabored. GI: Abdomen is flat, non-distended. : No signs and/or symptoms were reported regarding the genitourinary system. EENT: No signs and/or symptoms were reported regarding the EENT system. Derm: No signs and/or symptoms reported regarding the dermatologic system. Musculoskeletal: No signs and/or symptoms reported regarding the musculoskeletal system. Vital Signs: 10:45 BP 161 / 100; Pulse 78; Resp 17; Temp 97.9; Pulse Ox 99% on R/A; ap3 10:53 Weight 66.5 kg; ap3 11:59 BP 155 / 99; Pulse 79; Resp 18; Pulse Ox 99% on R/A; ld1 ED Course: 10:40 Patient arrived in ED. ra3 10:47 Triage completed. ap3 10:49 Arm band placed on right wrist. ap3 10:55 John Wade MD is Attending Physician. beronica 11:50 Richelle Avila, RN is Primary Nurse. ld1 11:54 Javier Mei MD is Referral Physician. [facility] 11:59 Patient has correct armband on for positive identification. Placed in gown. Bed in low ld1 position. Call light in reach. Side rails up X2. surveillance monitor on. Pulse ox on. NIBP on. Door closed. Noise minimized. Warm blanket given. 11:59 No provider procedures requiring assistance completed. ld1 11:59 Patient did not have IV access during this emergency room visit. ld1 Administered Medications: 11:52 Drug: LORazepam PO 2 mg PO once Route: PO; ld1 11:56 Follow up: Response: No adverse reaction ld1 Medication: :59 VIS not applicable for this client. ld1 Outcome: :54 Discharge ordered by . [facility] 12:01 Discharged to home ambulatory, ld1 12:01 Condition: stable 12:01 Discharge instructions given to patient, Instructed on discharge instructions, follow up and referral plans. Demonstrated understanding of instructions, follow-up care, medications, Prescriptions given X 2, 12:01 Patient left the ED. ld1 Signatures: John Wade MD MD cha Prokisch, Amanda RN RN ap3 Richelle Avila, SUSANA RN ld1 Johanna Kerr 3
== END 2024-11-01 12:01 | disposition home or self-care (01) ==
LOC: ER 10:35
DX: F41.8 Other specified anxiety disorders (principal); I10 Essential (primary) hypertension
CPT/HCPCS: 99284

== ENCOUNTER 2024-11-10 12:03 | Observation (INO) | payer OTHER ==
[2024-11-10] MEDS ORDERED: NA CHLORIDE 0.9% 1,000 ML ONE ×2 (13:19→18:20)
[2024-11-10] MEDS ORDERED: FAMOTIDINE 20 MG/2 ML VIAL IV ONE (13:19)
[2024-11-10 13:27] LABS: Absolute Basophils 0.1 K/uL (0-0.5); Absolute Lymphocytes (CBC) 2.4 K/uL (0.7-4.9); Absolute Neutrophil 9.8 K/uL (1.8-8.0); Basophils % 0.7 % (0-1.3); Eosinophils % 0.3 % (0-4.4); Hematocrit 46.2 % (36.0-45.0); Hemoglobin 16.1 g/dL (12.0-15.0); MCH 30.2 pg (27.0-35.0); MCHC 34.9 g/dL (32.0-36.0); MCV 86.8 fL (80-100); Monocytes % 7.5 % (3.3-12.3); Neutrophils % 73.5 % (41.7-73.7); Nucleated Red Blood Cells % 0.1 % (0-0); Platelets 348 thou/uL (152-406); RBC Red Blood Cell Count 5.32 M/uL (3.86-4.86); Red Cell Distribution Width 14.4 % (12.1-15.2)
[2024-11-10 13:36] LABS: PT Prothrombin Time 12.2 SECONDS (9.4-12.5); Protime INR 1.16
[2024-11-10 13:55] LABS: Albumin 3.7 g/dL (3.4-5.0); Bilirubin Direct 0.2 mg/dL (0-0.2); Bilirubin Indirect, Calculated 0.6 mg/dL (0.2-0.8); Bilirubin Total 0.8 mg/dL (0.2-1.0); Globulin 3.8 g/dL (2.3-3.5); Protein, Total 7.5 g/dL (6.4-8.2); Thyroid Stimulating Hormone 1.56 uIU/mL (0.358-3.740); Troponin High Sensitivity 21.8 pg/mL (<58.9)
--- NOTE | 2024-11-10 14:34 | RAD REPORT ---
Procedure: Chest Single View HISTORY: Cough COMPARISON: 2022 FINDINGS: The lungs appear clear of acute infiltrate.. The lungs are moderately hyperaerated No significant pleural effusion noted. The heart is normal size. IMPRESSION: No acute abnormality is displayed.
--- NOTE | 2024-11-10 14:55 | RAD REPORT ---
EXAM: CT CHEST, ABDOMEN AND PELVIS WITHOUT CONTRAST CLINICAL INDICATION: Female, 69 years old ABDOMINAL DISTENTION TECHNIQUE: CT chest, abdomen and pelvis was performed, without IV contrast, as per department protoco l. Axial, sagittal and coronal reconstructions were obtained. One or more of the following dose reduction techniques were used: Automated exposure control, adjustment of the mA and/or kV according to the patient size, and/or iterative reconstruction. Unless otherwise specified, incidental findings do not require dedicated imaging follow-up. [id number]. COMPARISON: No prior exam. FINDINGS: The lack of intravenous contrast limits the sensitivity of this exam for evaluation of solid visceral organs, vascular structures, and retroperitoneum. Chest: LOWER NECK: Visualized thyroid gland and soft tissues are normal. Breast prostheses. LUNGS AND AIRWAYS: Airways are clear. No evidence of airspace or interstitial process.Small bilateral pulmonary nodules, none measuring over 5 mm. These do not require follow-up. PLEURA: No pleural effusion. No pneumothorax. Hemidiaphragms are normally positioned. MEDIASTINUM AND LYMPH NODES: No mediastinal mass or fluid collection. Normal size mediastinal, hilar, and axillary lymph nodes. Mild distal esophageal thickening. THORACIC AORTA: Ascending thoracic aortic aneurysm measuring 4 cm. PULMONARY ARTERIES: Caliber is within normal limits. HEART: Normal heart size. Coronary arterial calcifications are present.No significant pericardial eff usion. Abdomen/Pelvis UPPER GI: No significant abnormality. LIVER: No significant focal abnormality. GALLBLADDER/BILE DUCTS: No biliary ductal dilatation.? PANCREAS: Atrophy, but otherwise unremarkable. SPLEEN: Unremarkable. ADRENALS: Adrenal thickening without discrete mass. KIDNEYS AND URETERS: No hydronephrosis.No suspicious renal mass. ABDOMINAL AORTA AND OTHER VESSELS: Moderate atherosclerotic changes without aortic aneurysm. PERITONEUM: No abnormal free fluid. No free air. LYMPH NODES: No pathologic lymphadenopathy. ABDOMINAL WALL: Unremarkable SMALL BOWEL/COLON: Small bowel has normal course and caliber. No colonic wall thickening or pericolon ic inflammatory changes.Appendix absent. Mild diverticulosis without diverticulitis. URINARY BLADDER: Underdistended but grossly unremarkable. REPRODUCTIVE ORGANS: Uterus surgically absent. No adnexal abnormality. MUSCULOSKELETAL: Multilevel degenerative changes in the spine. No acute fracture. ADDITIONAL FINDINGS: None. IMPRESSION: 1. No acute findings within the chest, abdomen, or pelvis. 2. 4 cm ascending thoracic aortic aneurysm. Consider nonemergent echocardiography. 3. Distal esophageal thickening which may reflect esophagitis. Endoscopy could further evaluate.
--- NOTE | 2024-11-10 16:18 | EDPHYS ---
Physician Documentation [facility] Name: Jazmín Arriaga Age: 69 yrs Sex: Female : 1955 Arrival Date: 11/10/2024 Time: 12:03 Bed 23 Private MD: MAINE Physician John Wade HPI: 11/10 16:09 This 69 yrs old Female presents to ER via Wheelchair with complaints of beronica Vomiting/Diarrhea - Sent by pcp. 16:09 The patient presents to the emergency department with nausea, vomiting, that is beronica intermittent. Onset: The symptoms/episode began/occurred 2 week(s) ago. Possible causes: unknown. The symptoms are aggravated by nothing. The symptoms are alleviated by nothing. Associated signs and symptoms: Pertinent positives: anorexia, nausea, vomiting. Severity of symptoms: At their worst the symptoms were moderate in the emergency department the symptoms are unchanged. The patient has not experienced similar symptoms in the past. Historical: - Allergies: 12:21 welbutrin; ap3 - PMHx: 12:21 Anxiety; Arthritis; colon cancer; grave's disease; Hypertension; left ventricular ap3 enlargement; - Immunization history:: Client reports having NOT received the Covid vaccine. Flu vaccine is not up to date. - Infectious Disease History:: Denies. - Social history:: Smoking status: Patient reports the use of cigarette tobacco products, smokes one pack cigarettes per day. ROS: 16:11 Constitutional: Negative for fever, chills, and weight loss, Eyes: Negative for injury, beronica pain, redness, and discharge, ENT: Negative for injury, pain, and discharge, Neck: Negative for injury, pain, and swelling, Respiratory: Negative for shortness of breath, cough, wheezing, and pleuritic chest pain, Back: Negative for injury and pain, : Negative for injury, bleeding, discharge, and swelling, MS/Extremity: Negative for injury and deformity, Skin: Negative for injury, rash, and discoloration, Neuro: Negative for headache, weakness, numbness, tingling, and seizure, Psych: Negative for depression, anxiety, suicide ideation, homicidal ideation, and hallucinations, Allergy/Immunology: Negative for hives, rash, and allergies, Endocrine: Negative for neck swelling, polydipsia, polyuria, polyphagia, and marked weight changes, Hematologic/Lymphatic: Negative for swollen nodes, abnormal bleeding, and unusual bruising, 16:11 Cardiovascular: Positive for palpitations, 16:11 Abdomen/GI: Positive for abdominal pain, nausea and vomiting, diarrhea, abdominal cramps, Exam: 16:11 Constitutional: This is a well developed, well nourished patient who is awake, alert, beronica and in no acute distress. Head/Face: Normocephalic, atraumatic. Eyes: Pupils equal round and reactive to light, extra-ocular motions intact. Lids and lashes normal. Conjunctiva and sclera are non-icteric and not injected. Cornea within normal limits. Periorbital areas with no swelling, redness, or edema. ENT: Nares patent. No nasal discharge, no septal abnormalities noted. Tympanic membranes are normal and external auditory canals are clear. Oropharynx with no redness, swelling, or masses, exudates, or evidence of obstruction, uvula midline. Mucous membranes moist. Neck: Trachea midline, no thyromegaly or masses palpated, and no cervical lymphadenopathy. Supple, full range of motion without nuchal rigidity, or vertebral point tenderness. No Meningismus. Chest/axilla: Normal chest wall appearance and motion. Nontender with no deformity. No lesions are appreciated. Cardiovascular: Regular rate and rhythm with a normal S1 and S2. No gallops, murmurs, or rubs. Normal PMI, no JVD. No pulse deficits. Respiratory: Lungs have equal breath sounds bilaterally, clear to auscultation and percussion. No rales, rhonchi or wheezes noted. No increased work of breathing, no retractions or nasal flaring. Abdomen/GI: Soft, non-tender, with normal bowel sounds. No distension or tympany. No guarding or rebound. No evidence of tenderness throughout. Back: No spinal tenderness. No costovertebral tenderness. Full range of motion. Female : Normal external genitalia. Skin: Warm, dry with normal turgor. Normal color with no rashes, no lesions, and no evidence of cellulitis. MS/ Extremity: Pulses equal, no cyanosis. Neurovascular intact. Full, normal range of motion., bilateral aka Neuro: Awake and alert, GCS 15, oriented to person, place, time, and situation. Cranial nerves II-XII grossly intact. Motor strength 5/5 in all extremities. Sensory grossly intact. Cerebellar exam normal. Normal gait. 16:11 ECG was reviewed by the Attending Physician. 16:12 Musculoskeletal/extremity: DVT Exam: No signs of deep vein thrombosis. no pain, no beronica swelling, no tenderness, negative Homans' sign noted on exam, no appreciated bluish discoloration, no erythema, no increased warmth, Vital Signs: 12:18 BP 141 / 90; Pulse 86; Resp 18; Temp 98(O); Pulse Ox 97% on R/A; Weight 62.6 kg; Height ap3 5 ft. 5 in. ; 18:15 BP 179 / 82; Pulse 68; Resp 16; Pulse Ox 100% on R/A; jb4 19:15 BP 150 / 66; Pulse 67; Resp 22; Pulse Ox 100% on R/A; jb4 20:00 BP 153 / 75; Pulse 69; Resp 20; Pulse Ox 100% on R/A; jb4 21:40 BP 146 / 82; Pulse 66; Resp 16; Pulse Ox 99% on R/A; jb4 12:18 Body Mass Index 22.96 (62.60 kg, 165.1 cm) ap3 MDM: 12:08 Medical Screening Exam initiated beronica 16:12 Differential diagnosis: Nonspecific abd pain, gastritis, pancreatitis, viral beronica gastroenteritis, gastroenteritis. Differential Diagnosis altered mental status, sepsis, flu. Differential Diagnosis: aortic aneurysm, cardiac arrhythmia, seizure, sepsis, transient ischemic attack, vasovagal episode. Data reviewed: vital signs, nurses notes, lab test result(s), EKG, radiologic studies, CT scan, plain films. Consideration of Admission/Observation Patient was admitted/placed on observation. Escalation of care including admission/observation considered. I considered the following discharge prescriptions or medication management in the emergency department Medications were administered in the Emergency Department. See MAR. Independent interpretation of the following test(s) in the Emergency Department EKG: See my EKG interpretation above. Test considered but Not performed: CT: NO CT HEAD. Historians other than the Patient: Spouse/Significant Other: WELL INFORMED. Care significantly affected by the following chronic conditions: Hypertension, Cancer, ANXIETY, OA, LV ENLARGEMENT, GRAVES. Counseling: I had a detailed discussion with the patient and/or guardian regarding the historical points, exam findings, and any diagnostic results supporting the discharge/admit diagnosis, the presence of at least one elevated blood pressure reading (>120/80) during this emergency department visit, lab results, the need for further work-up and treatment in the hospital. 11/10 12:31 Order name: Basic Metabolic Panel; Complete Time: 14:10 [facility] 11/10 12:31 Order name: CBC with Diff; Complete Time: 14:10 [facility] 11/10 12:31 Order name: LFT's; Complete Time: 14:10 [facility] 11/10 12:31 Order name: Magnesium; Complete Time: 14:10 [facility] 11/10 12:31 Order name: NT PRO-BNP; Complete Time: 14:10 [facility] 11/10 12:31 Order name: PT-INR; Complete Time: 14:10 [facility] 11/10 12:31 Order name: Troponin HS; Complete Time: 14:10 [facility] 11/10 12:31 Order name: Urinalysis w/ reflexes [facility] 11/10 12:31 Order name: Lipase; Complete Time: 14:10 [facility] 11/10 12:31 Order name: TSH; Complete Time: 14:10 [facility] 11/11 05:30 Order name: CBC with Automated Diff [facility] 11/11 05:34 Order name: Basic Metabolic Panel [facility] 11/10 12:31 Order name: XRAY Chest (1 view); Complete Time: 15:41 [facility] 11/10 14:12 Order name: Chest Abd Pelvis Wo Con; Complete Time: 15:41 [facility] 11/10 16:33 Order name: CONS Physician Consult [facility] 11/10 12:31 Order name: EKG - Nurse/Tech; Complete Time: 13:39 [facility] 11/10 12:31 Order name: IV Saline Lock; Complete Time: 13:22 [facility] 11/10 12:31 Order name: Labs collected and sent; Complete Time: 13:22 [facility] 11/10 12:31 Order name: O2 Per Protocol; Complete Time: 13:22 [facility] 11/10 12:31 Order name: O2 Sat Monitoring; Complete Time: 13:22 [facility] EC:11 Rate is 78 beats/min. Rhythm is regular. QRS [place] is Normal. [place] interval is normal. QRS beronica interval is normal. QT interval is normal. No Q waves. T waves are Normal. No ST changes noted. Clinical impression: NSR w/ Non-specific ST/T Changes and No evidence of ischemia. Interpreted by me. Reviewed by me. Administered Medications: 13:22 Drug: NS 0.9% IV 1000 ml IV at 1000 ml once; to be given as a bolus over 60 minutes ld1 Route: IV; Rate: 1000 ml; Site: left antecubital; 13:22 Drug: Famotidine IVP 20 mg IVP once; dilute with 10 mL 0.9% NaCl; give over 2 minutes ld1 Route: IVP; Site: left antecubital; 18:29 Drug: NS 0.9% with KCl IV 20 mEq/L 1000 ml IV at 125 ml/hr continuous Route: IV; Rate: kb3 125 ml/hr; Site: right antecubital; 18:29 Drug: NS 0.9% IV 1000 ml IV at 1000 ml once; to be given as a bolus over 60 minutes kb3 Route: IV; Rate: 1000 ml; Site: right antecubital; Disposition Summary: 11/10/24 16:17 Hospitalization Ordered Notes: Hospitalization Status: Inpatient Admission beronica Provider: Tomy Zavala cha Condition: Fair beronica Problem: new beronica Symptoms: have improved beronica Bed/Room Type: Standard beronica Location: [facility] [place] ER HOLD(11/10/24 17:42) kb3 Room Assignment: ERHOLD-(11/10/24 17:42) kb3 Diagnosis - Dehydration beronica - Hypokalemia beronica - Acute kidney failure, unspecified beronica - Elevated white blood cell count beronica Forms: - Medication Reconciliation Form beronica - SBAR form beronica - Leadership Thank You Letter beronica Signatures: Dispatcher [employer] EDMS John Wade MD MD cha Prokisch, Amanda, RN RN ap3 Richelle Avila RN RN ld1 Irene Paula RN RN kb3 Corrections: (The following items were deleted from the chart) 12:32 12:32 BASIC METABOLIC PANEL+C.LAB.BRZ ordered. EDMS EDMS 12:32 12:32 CBC+H.LAB.BRZ ordered. EDMS EDMS 12:32 12:32 HEPATIC FUNCTION+C.LAB.BRZ ordered. EDMS EDMS 12:32 12:32 MAGNESIUM+C.LAB.BRZ ordered. EDMS EDMS 12:32 12:32 PROBNP+C.LAB.BRZ ordered. EDMS EDMS 12:32 12:32 PROTIME (+INR)+COAG.LAB.BRZ ordered. EDMS EDMS 12:32 12:32 Troponin High Sensitivity+C.LAB.BRZ ordered. EDMS EDMS 12:32 12:32 Urinalysis+U.LAB.BRZ ordered. EDMS EDMS 12:32 12:32 LIPASE+C.LAB.BRZ ordered. EDMS EDMS 12:32 12:32 THYROID STIMULAT HORMONE+C.LAB.BRZ ordered. EDMS EDMS 12:32 12:32 Chest Single View+RAD.RAD.BRZ ordered. EDMS EDMS 12:32 12:32 Chest Abdomen Pelvis W Con+CT.RAD.BRZ ordered. EDMS EDMS 17:42 16:17 Telemetry/MedSurg (Inpatient) [facility] kb3 17:42 16:17 [facility] kb3
--- NOTE | 2024-11-10 16:18 | ER ---
Nurse's Notes [facility] Name: Jazmín Arriaga Age: 69 yrs Sex: Female : 1955 Arrival Date: 11/10/2024 Time: 12:03 Bed 23 Private MD: Diagnosis: Dehydration;Hypokalemia;Acute kidney failure, unspecified;Elevated white blood cell count Presentation: 11/10 12:18 Chief complaint: Patient states: she was seen at her PCP's office for loss of appetite ap3 and weight loss of the last few weeks. patient reports her symptoms from her last visit are not improving. patient is also reporting vomiting at night. Coronavirus screen: At this time, the client does not indicate any symptoms associated with coronavirus-19. Ebola Screen: No symptoms or risks identified at this time. Initial Sepsis Screen: Does the patient meet any 2 criteria? No. Patient's initial sepsis screen is negative. Does the patient have a suspected source of infection? No. Patient's initial sepsis screen is negative. Risk Assessment: Do you want to hurt yourself or someone else? Patient reports no desire to harm self or others. Onset of symptoms is unknown. 12:18 Method Of Arrival: Wheelchair ap3 12:18 Acuity: ALEX 3 ap3 Triage Assessment: 12:22 General: Appears slender, Behavior is cooperative, anxious, restless. Pain: Denies ap3 pain. Neuro: Level of Consciousness is awake, alert, obeys commands, Oriented to person, place, time, situation, Appropriate for age. Cardiovascular: Patient's skin is warm and dry. Respiratory: Airway is patent Respiratory effort is even, unlabored, Respiratory pattern is regular, symmetrical. GI: Reports nausea, vomiting. Historical: - Allergies: 12:21 welbutrin; ap3 - PMHx: 12:21 Anxiety; Arthritis; colon cancer; grave's disease; Hypertension; left ventricular ap3 enlargement; - Immunization history:: Client reports having NOT received the Covid vaccine. Flu vaccine is not up to date. - Infectious Disease History:: Denies. - Social history:: Smoking status: Patient reports the use of cigarette tobacco products, smokes one pack cigarettes per day. Screenin:22 Abuse screen: Denies threats or abuse. Nutritional screening: Had unintentional weight ap3 loss of 10 pounds or more. Tuberculosis screening: No symptoms or risk factors identified. 22:00 [facility] ED Fall Risk Assessment (Adult) History of falling in the last 3 months, jb4 including since admission No falls in past 3 months (0 pts) Confusion or Disorientation No (0 pts) Intoxicated or Sedated No (0 pts) Impaired Gait No (0 pts) Mobility Assist Device Used No (0 pt) Altered Elimination No (0 pt) Score/Fall Risk Level 0 - 2 = Low Risk Oriented to surroundings, Maintained a safe environment. Assessment: 18:00 Reassessment: Patient appears in no apparent distress at this time. Patient and/or jb4 family updated on plan of care and expected duration. Pain level reassessed. Patient is alert, oriented x 3, equal unlabored respirations, skin warm/dry/pink. 19:00 Reassessment: Patient appears in no apparent distress at this time. Patient and/or jb4 family updated on plan of care and expected duration. Pain level reassessed. Patient is alert, oriented x 3, equal unlabored respirations, skin warm/dry/pink. 20:00 Reassessment: Patient appears in no apparent distress at this time. Patient and/or jb4 family updated on plan of care and expected duration. Pain level reassessed. Patient is alert, oriented x 3, equal unlabored respirations, skin warm/dry/pink. 21:00 Reassessment: Patient appears in no apparent distress at this time. Patient and/or jb4 family updated on plan of care and expected duration. Pain level reassessed. Patient is alert, oriented x 3, equal unlabored respirations, skin warm/dry/pink. Vital Signs: 12:18 BP 141 / 90; Pulse 86; Resp 18; Temp 98(O); Pulse Ox 97% on R/A; Weight 62.6 kg; Height ap3 5 ft. 5 in. ; 18:15 BP 179 / 82; Pulse 68; Resp 16; Pulse Ox 100% on R/A; jb4 19:15 BP 150 / 66; Pulse 67; Resp 22; Pulse Ox 100% on R/A; jb4 20:00 BP 153 / 75; Pulse 69; Resp 20; Pulse Ox 100% on R/A; jb4 21:40 BP 146 / 82; Pulse 66; Resp 16; Pulse Ox 99% on R/A; jb4 12:18 Body Mass Index 22.96 (62.60 kg, 165.1 cm) ap3 ED Course: 12:07 Patient arrived in ED. ra3 12:08 John Wade MD is Attending Physician. beronica 12:21 Triage completed. ap3 12:23 Arm band placed on left wrist. ap3 12:55 XRAY Chest (1 view) In Process Unspecified. EDMS 13:22 Inserted saline lock: 22 gauge in left antecubital area, using aseptic technique. Blood ld1 collected. Flushed with 10 mL NS. 14:31 Chest Abd Pelvis Wo Con In Process Unspecified. EDMS 16:15 Tomy Zavala MD is Hospitalizing Provider. beronica 20:30 Patient has correct armband on for positive identification. Bed in low position. Call jb4 light in reach. Side rails up X 1. Provided Education on: need for admit. 20:30 No provider procedures requiring assistance completed. Patient admitted, IV remains in jb4 place. 11/11 03:32 Licha Rey RN is Primary Nurse. br2 Administered Medications: 11/10 13:22 Drug: NS 0.9% IV 1000 ml IV at 1000 ml once; to be given as a bolus over 60 minutes ld1 Route: IV; Rate: 1000 ml; Site: left antecubital; 13:22 Drug: Famotidine IVP 20 mg IVP once; dilute with 10 mL 0.9% NaCl; give over 2 minutes ld1 Route: IVP; Site: left antecubital; 18:29 Drug: NS 0.9% with KCl IV 20 mEq/L 1000 ml IV at 125 ml/hr continuous Route: IV; Rate: kb3 125 ml/hr; Site: right antecubital; 18:29 Drug: NS 0.9% IV 1000 ml IV at 1000 ml once; to be given as a bolus over 60 minutes kb3 Route: IV; Rate: 1000 ml; Site: right antecubital; Medication: 20:30 VIS not applicable for this client. jb4 Output: 19:30 Urine: 1ml (Voided); Total: 1ml. jb4 Outcome: 16:17 Decision to Hospitalize by Provider. beronica 20:30 Admitted to ER Hold. Please see [facility] for further documentation. jb4 20:30 Condition: stable 20:30 Discharge instructions given to patient, Instructed on the need for admit, Demonstrated understanding of instructions, 11/11 10:37 Patient left the ED. ss Signatures: Dispatcher [employer] EDMS John Wade MD MD cha Blanchard, Shelby, RN RN ss Benny Espinosa, RN RN jb4 Norma Edwards RN RN ap3 Richelle Avila RN RN ld1 Irene Paula RN RN kb3 Johanna Kerr ra3 Licha Rey RN RN br2
[2024-11-10] MEDS ORDERED: NS KCL 20MEQ 1,000 ML IV ONE (18:21)
[2024-11-10] MEDS ORDERED: ACETAMINOPHEN 325 MG TABLET PO PRN (20:35)
[2024-11-10] MEDS: D5.45NS W/KCL 20MEQ 1,000 ML IV SCH (20:35)
[2024-11-10] MEDS ORDERED: ONDANSETRON 4 MG/2 ML VIAL IV PRN (20:35)
[2024-11-10] MEDS: FAMOTIDINE 20 MG/2 ML VIAL IV ONE (21:00)
[2024-11-10] MEDS: QUETIAPINE 25 MG TAB PO SCH (21:00)
[2024-11-10] MEDS ORDERED: D5.45NS W/KCL 20MEQ 1,000 ML IV ONE (21:17)
[2024-11-10] MEDS: ZOLPIDEM TARTRATE 10 MG TABLET PO PRN (21:45)
[2024-11-10 21:48] VITALS: O2SAT 97
[2024-11-10 21:53] VITALS: BMI 21.6
[2024-11-11 05:22] LABS: Absolute Eosinophils 0.1 K/uL (0-0.5); Absolute Lymphocytes (CBC) 2.1 K/uL (0.7-4.9); Absolute Monocytes 0.6 K/uL (0.1-1.3); Absolute Neutrophil 4.9 K/uL (1.8-8.0); Basophils % 0.4 % (0-1.3); Eosinophils % 1.3 % (0-4.4); Hematocrit 34.9 % (36.0-45.0); Hemoglobin 12.5 g/dL (12.0-15.0); Lymphocytes % 27.3 % (15.3-44.8); MCH 30.7 pg (27.0-35.0); MCHC 35.8 g/dL (32.0-36.0); MCV 85.9 fL (80-100); MPV 7.9 fL (7.6-11.3); Monocytes % 7.1 % (3.3-12.3); Neutrophils % 63.9 % (41.7-73.7); Nucleated Red Blood Cells % 0.1 % (0-0); Platelets 224 thou/uL (152-406); RBC Red Blood Cell Count 4.07 M/uL (3.86-4.86); Red Cell Distribution Width 13.9 % (12.1-15.2)
[2024-11-11] MEDS ORDERED: D5.45NS W/KCL 20MEQ 1,000 ML IV ONE (05:22)
[2024-11-11 05:33] LABS: Anion Gap 10.2 mEq/L (5.0-15.0); Potassium 3.2 mEq/L (3.5-5.1)
[2024-11-11 05:42] VITALS: BP 126/55
[2024-11-11] MEDS: POTASSIUM CL SA 10 MEQ TAB PO ONE (06:13)
[2024-11-11] MEDS ORDERED: POTASSIUM CL SA 10 MEQ TAB PO ONE (06:36)
--- NOTE | 2024-11-11 06:58 | HP ---
Date of Admission: 11/10/2024 Chief Complaint: Not eating, drinking, and nausea, vomiting. History Of Present Illness: This is a 69-year-old very pleasant female patient with longstanding his tory of anxiety, depression, came into office today with her with poor appetite for last 2 to 3 months, but in last 5 days, she has not had anything to eat and hardly anything to drink. She den ies any trouble swallowing, but states yesterday when she was drinking some water, she felt like she had some pain in her esophagus area. No dysphagia or any current choking spell reported. The patien t feels weak, tired and had episode of nausea, vomiting over the weekend. Denies any abdominal pain. No blood in stool, blood in urine. No hemoptysis or hematemesis. No chest pain. No shortness of breath. She has lost 30 pounds in last 3 months and 10 pounds in last 2 weeks. After I evaluated he r, she was sent to emergency room. Details were discussed with emergency room physician and after he r further evaluation in emergency room, the patient was admitted to hospital. Allergies: TO BUPROPION CAUSING RASH AND ITCHING. Medications: Escitalopram 20 mg daily, fluticasone nasal spray 1 spray each nostril 2 times a day, l orazepam 3 mg capsule daily, losartan 50 mg daily, metoprolol tartrate 25 mg daily, Seroquel 25 mg at bedtime, Ingrezza 40 mg daily, and zolpidem 5 mg at bedtime. Review of Systems: GI: As mentioned above. Constitutional: As mentioned above. All other systems reviewed and negative. Past Medical History: Significant for Graves disease and hyperthyroidism which was treated with oral medications, hypertension, left ventricular hypertrophy, palpitation, leukocytosis, depression, tard feli dyskinesia, and hyponatremia. Past Surgical History: Appendectomy, hysterectomy, breast augmentation with saline implant. Family History: Father had colon cancer and hypertension. Mother had Alzheimer's disease. Sister h ad depression, hypertension. Social History: Significant for smoking on a daily basis. Use of alcohol, negative. Physical Examination: Vital Signs: Height 5 feet inches, weight 138 pounds, temperature , pulse , respiratory rate , blood pressure , oxygen saturation . General: Awake, alert, oriented, not in distress. HEENT: Head atraumatic, normocephalic. Conjunctivae nonerythematous. Sclerae white. Mouth, no thr ush or edema noted. Ears/Nose, no mass, lesion, discharge noted. Neck: Supple. No JVD, lymph nodes, bruit, thyromegaly noted. Lungs: Bilateral good equal air entry. Clear to auscultation. No rhonchi. No rales. Heart: Normal heart sounds, no murmur or gallop. Abdomen: Soft, bowel sounds normal. No guarding, rigidity, tenderness, mass, hepatosplenomegaly, dis tention, or bruit noted. Extremities: No leg edema. No calf tenderness. Skin: No rash, ulcer, cellulitis. Lymphatics: No lymph node enlargement in neck, supraclavicular, infraclavicular region. Neuro: No focal neurological deficit. Chest: Unremarkable. External Genitalia: Deferred. Rectal: Deferred. Laboratory Data: WBC 13.3, hemoglobin 16.1, platelets 348. Sodium 131, potassium 3.1, chloride 98, bicarb 17, BUN 25, creatinine 1.95, glucose 100. Liver function tests unremarkable. Troponin 21.8. ProBNP 3985. TSH 1.560. Lipase 36. CAT scan of chest, abdomen, and pelvis shows no acute finding in the chest, abdomen, and pelvis. There is 4 cm ascending thoracic aortic aneurysm and distal esoph ageal thickening. Chest x-ray, no acute intrathoracic changes. Impression: 1.Acute kidney injury. 2.Volume depletion. 3.Failure to thrive. 4.Anxiety. 5.Depression. 6.Leukocytosis. 7.Hyponatremia. 8.Hypertension. 9.History of hyperthyroidism. 10.Ascending aortic aneurysm. Plan: We will admit the patient to hospital for further evaluation and management of this problem. The patient is appropriate for inpatient and is expected to spend 2 midnights in hospital. For her a cute kidney injury and volume depletion, we will treat it with IV fluid hydration, monitor her renal function with blood work tomorrow morning, and no need for any further intervention there. Hypokalem ia was corrected in the emergency room. We will follow up on blood work tomorrow morning and no need for further intervention. Hyponatremia is chronic and stable. No need for any further intervention on it. The patient has history of Graves disease and hyperthyroidism, but her TSH is normal. So at this point, that is not contributing or causing any weight loss problem. She has significant proble m with anxiety, depression. She is under care of psychiatrist and sees her psychiatrist on a regular basis and I have encouraged her to follow up with psychiatrist very closely and in fact, soon after she gets out of the hospital, she should follow up with him and request him to come back and see her while in the hospital if he is available. For her esophagitis type of appearance, no need for any fu rther intervention except we will use some famotidine type of medication for it. Hypertension will b e managed with antihypertensive medication with monitoring of blood pressure. No need for further in tervention. For 4 cm ascending aortic aneurysm, which will not require any further intervention, exc ept the patient will need to follow up with plant buyer on a regular basis on outpatient basis. Total time spent today was 90 minutes including review of last office visit record from 10/20/2024, e valuation at office, communication with emergency room physician 2 different times today which is bef ore she was evaluated and I communicated with ER physician provided all the details and after all the evaluation completed, I also communicated with ER physician and performing today's evaluation and emmanuel cle[place]and for this hospital admission and review of emergency room visit. I will see her tomorrow morning for foll luda. GONZALO/MODL Voice ID: [id number]
[2024-11-11] MEDS ORDERED: FLU (Fluarix Triv) TS24-25(6MOS UP)/PF 45 MCG/0.5 ML Syringe IM ONE (07:15)
[2024-11-11] MEDS ORDERED: PNEUMOCOCCAL VACCINE 0.5 ML IMVAC ONE (08:00)
[2024-11-11 08:25] VITALS: TEMP 97.5
[2024-11-11] MEDS ORDERED: FAMOTIDINE 20 MG TAB ONE (09:19)
[2024-11-11] MEDS ORDERED: FAMOTIDINE 20 MG/2 ML VIAL IV ONE (09:22)
[2024-11-11] MEDS: FAMOTIDINE 20 MG/2 ML VIAL IV SCH (09:26)
--- NOTE | 2024-11-12 07:14 | DS ---
Date of Discharge: 11/11/2024 Disposition: Discharged to go home. Physical Examination: HEENT: Unremarkable. Lungs: Clear to auscultation. Heart: Sounds normal. Abdomen: Soft. Bowel sounds normal. No guarding, rigidity, tenderness, distention. Extremities: No leg edema. Laboratory Data: Yesterday upon admission, WBC 13.3, hemoglobin 16.1, platelets 348. Today, WBC 7.7 , hemoglobin 12.5, platelets 224. For chemistry yesterday, sodium 131, potassium 3, chloride 98, bic arb 17, BUN 25, creatinine 1.95, estimated GFR 27. Liver function tests unremarkable. Glucose 100. ProBNP 3985. Troponin 21.8. TSH 1.56. Lipase was 36. Today, sodium 136, potassium 3.2, chloride 109, bicarb 20, BUN 20, creatinine 1.13, estimated GFR 52, glucose 118. Hospital Course: This is a 69-year-old pleasant female patient, who came into office with complaints of not eating or drinking anything for last few days and having nausea, vomiting. Please see dictat ed H and P for more information. The patient has lost 30 pounds in last 3 months. Out of that 30 po unds, 10 pounds she has lost in last 2 weeks. After she was evaluated at the office when she was bro ught in by her , she was directed to go to emergency room. Details were discussed with HARMONY tan and the patient was evaluated and after her evaluation, she was admitted to the hospital with acute kidney injury and volume depletion. The patient has significant problem with underlying anxiet y and depression, for which she is under care of psychiatrist, Dr. Herrera, and she takes her medicat ions regularly as prescribed as she reports. Overall with IV fluid hydration, her condition has impr lyly. This morning, she looks lot better compared to yesterday and our plan is to now discharge her to go home. She is medically stable for discharge and I have instructed her that [facility] [place] she should call her psychiatrist office and try to schedule appointment to see him as so on as possible this week for medication adjustment as we do not believe at this point that we have an y other medical reason except psychiatric reason that might explain her not eating or drinking anythi ng and this significant weight loss in such a short period of time. I have also asked her to come se e me for followup next week. The patient's CAT scan of chest, abdomen, pelvis did not show any acute findings. There was 4 cm ascending thoracic aortic aneurysm and some thickening of the esophageal m ucosa and I have discussed those findings with her. For her ascending aortic aneurysm which is 4 cm in size, no need for any further intervention except monitoring. An elective outpatient Cardiology yonis yusuf was suggested to her. Final Diagnoses: 1.Acute kidney injury. 2.Volume depletion. 3.Failure to thrive. 4.Hypokalemia. 5.Anxiety. 6.Depression. 7.Leukocytosis. 8.Hypertension. 9.History of hyperthyroidism. 10.Ascending aortic aneurysm. Discharge Medications And Instructions: 1.Continue all prior home medications. 2.Drink 60 to 80 ounces of water daily. 3.Use nutritional supplement like Ensure 2 to 3 cans a day. 4.Eat 3 meals a day. 5.Follow up at my office next week. 6.Follow up with your psychiatrist as soon as possible after discharge to talk about poor appetite a nd not eating and weight loss of 30 pounds in last 3 months, so he can adjust your medications. Total time spent today was 40 minutes. GONZALO/MODL Voice ID: [id number] Report ID: [id number]
== END 2024-11-11 10:50 | disposition home or self-care (01) ==
LOC: ER 12:03 → ERHOLD 16:27 → INTOOBSV 16:27 → ERHOLD 16:56
PROVIDERS: ADMIT Internal Medicine; ATTEND Internal Medicine
DX: N17.9 Acute kidney failure, unspecified (principal); E86.9 Volume depletion, unspecified; R62.7 Adult failure to thrive; D72.829 Elevated white blood cell count, unspecified; E87.1 Hypo-osmolality and hyponatremia; F41.9 Anxiety disorder, unspecified; I10 Essential (primary) hypertension; F32.A Depression, unspecified; I71.21 Aneurysm of the ascending aorta, without rupture; Z68.21 Body mass index [BMI] 21.0-21.9, adult; Z88.8 Allergy status to other drugs, medicaments and biological substances
CPT/HCPCS: 85025 ×2; 80048 ×2; 36415; 83735; 85610; 80076; 84443; 84484; 83690; 83880; 71250; 74176; 71045; J7030 ×2; J3480; G0378